=== PATIENT | female | born 1970 | race Hispanic/Latino ===

== ENCOUNTER 2017-10-02 04:07 | Emergency (ER) | payer BC ==
[2017-10-02] MEDS ORDERED: TRAMADOL HCL 50 MG TABLET ONE (05:50)
== END 2017-10-02 07:02 | disposition home or self-care (01) ==
LOC: EDH 04:07
DX: M79.645 Pain in left finger(s) (principal); M25.532 Pain in left wrist; I10 Essential (primary) hypertension; Z98.51 Tubal ligation status
CPT/HCPCS: 29125; 29130; 36415; 73130; 84550

== ENCOUNTER 2017-11-04 17:03 | Emergency (ER) | payer BC ==
[2017-11-04 17:31] LABS: BASOPHILS % (AUTO) 0.5 % (0.0-5.0); EOSINOPHILS % (AUTO) 0.7 % (0.0-8.0); HEMATOCRIT 41.3 % (36-48); LYMPHOCYTES % (AUTO) 14.9 % (21.0-51.0); MEAN CORPUSCULAR HEMOGLOBIN 27.3 pg (27.0-33.0); MEAN CORPUSCULAR HGB CONC 32.9 g/dL (32.0-36.0); MEAN CORPUSCULAR VOLUME 83.1 fL (79-99); MONOCYTES % (AUTO) 5.8 % (3.0-13.0); NEUTROPHILS % (AUTO) 78.1 % (40.0-77.0); PLATELET COUNT (AUTO) 253 K/uL (130-400); RED BLOOD CELL COUNT(AUTO) 4.97 MIL/uL (4.00-5.50); RED CELL DISTRIBUTION WIDTH 15.1 % (11.0-15.5); WHITE BLOOD COUNT (AUTO) 14.4 K/uL (4.8-10.8)
[2017-11-04] MEDS ORDERED: SODIUM CHLORIDE 0.9% 1000ML 1,000 ML IV ONE (17:40)
[2017-11-04] MEDS ORDERED: ONDANSETRON HCL 4 MG/2 ML VIAL ONE (17:40)
[2017-11-04] MEDS ORDERED: KETOROLAC TROMETHAMINE 30MG/ML ONE (17:41)
[2017-11-04 17:45] LABS: CREATININE 0.8 mg/dL (0.5-1.5); POTASSIUM 3.7 mmol/L (3.5-5.1)
[2017-11-04 17:49] LABS: ALBUMIN 3.8 g/dL (3.5-5.0); BILIRUBIN,TOTAL 0.9 mg/dL (0.2-1.0); TOTAL PROTEIN, SERUM 7.9 g/dL (6.0-8.3)
[2017-11-04 17:51] LABS: APPEARANCE,URINE CLOUDY (CLEAR); BILIRUBIN,URINE NEGATIVE (NEGATIVE); COLOR,URINE YELLOW (YELLOW); GLUCOSE, URINE (UA) NEGATIVE (NEGATIVE); KETONES,URINE 5 mg/dL (NEGATIVE); LEUKOCYTE ESTERASE ,URINE LARGE (NEGATIVE); NITRATE,URINE NEGATIVE (NEGATIVE); OCCULT BLOOD,URINE SMALL (NEGATIVE); PH,URINE 7.5 (5.0-8.0); PROTEIN,URINE 30 (NEGATIVE)
[2017-11-04 17:53] LABS: HCG,QUAL RESULT NEGATIVE (NEGATIVE)
[2017-11-04 18:06] LABS: BACTERIA,URINE Rare /HPF (None Seen); RBC,URINE 0-1 /HPF (0-1); WBC,URINE 51-100 /HPF (0-1)
[2017-11-04] MEDS ORDERED: IOPAMIDOL-370 75 ML VIAL IV ONE (18:23)
[2017-11-04] MEDS ORDERED: CEFTRIAXONE SODIUM 1 GM ONE (19:33)
== END 2017-11-04 20:00 | disposition home or self-care (01) ==
LOC: EDH 17:03
DX: N10 Acute pyelonephritis (principal); I10 Essential (primary) hypertension
CPT/HCPCS: 36415; 74177; 80053; 81001; 81025; 85025; 96361; 96374; 96375; 99285; J0696; J1885; J2405; J7030; Q9967

== ENCOUNTER 2019-01-12 20:42 | Emergency (ER) | payer OTHER, SELFPAY ==
[2019-01-12 21:20] LABS: APPEARANCE,URINE CLEAR (CLEAR); BILIRUBIN,URINE NEGATIVE (NEGATIVE); COLOR,URINE YELLOW (YELLOW); GLUCOSE, URINE (UA) NEGATIVE (NEGATIVE); KETONES,URINE NEGATIVE (NEGATIVE); LEUKOCYTE ESTERASE ,URINE LARGE (NEGATIVE); NITRATE,URINE NEGATIVE (NEGATIVE); OCCULT BLOOD,URINE TRACE-INTACT (NEGATIVE); PROTEIN,URINE NEGATIVE (NEGATIVE)
[2019-01-12 21:30] LABS: BASOPHILS % (AUTO) 0.7 % (0.0-5.0); EOSINOPHILS % (AUTO) 3.4 % (0.0-8.0); HEMATOCRIT 42.4 % (36-48); LYMPHOCYTES % (AUTO) 37.4 % (21.0-51.0); MEAN CORPUSCULAR HEMOGLOBIN 28.3 pg (27.0-33.0); MEAN CORPUSCULAR HGB CONC 33.3 g/dL (32.0-36.0); MEAN CORPUSCULAR VOLUME 85.1 fL (79-99); MONOCYTES % (AUTO) 13.3 % (3.0-13.0); NEUTROPHILS % (AUTO) 45.2 % (40.0-77.0); NUCLEATED RED BLOOD CELLS 0.1 % (0.0-0.19); PLATELET COUNT (AUTO) 198 K/uL (130-400); RED BLOOD CELL COUNT(AUTO) 4.98 MIL/uL (4.00-5.50); RED CELL DISTRIBUTION WIDTH 14.4 % (11.0-15.5); WHITE BLOOD COUNT (AUTO) 5.6 K/uL (4.8-10.8)
[2019-01-12 21:41] LABS: BACTERIA,URINE Few /HPF (None Seen)
[2019-01-12 21:42] LABS: CREATININE 0.8 mg/dL (0.5-1.5); POTASSIUM 3.6 mmol/L (3.5-5.1)
[2019-01-12 21:43] LABS: SQUAMOUS EPITHELIAL CELL,UR Few /HPF (0-2); TRANSITIONAL EPI CELLS,URINE Rare /HPF (None Seen)
[2019-01-12] MEDS ORDERED: IPRATROPIUM/ALBUTEROL SULFATE 3 ML SOLUTION IH ONE (21:45)
[2019-01-12 22:06] LABS: RAPID GROUP A STREP POSITIVE (NEGATIVE)
[2019-01-12] MEDS ORDERED: CEFTRIAXONE SODIUM 1 GM ONE (22:11)
[2019-01-12] MEDS ORDERED: AZITHROMYCIN 250 MG TABLET PO ONE (22:12)
== END 2019-01-12 23:05 | disposition home or self-care (01) ==
LOC: EDH 20:42
DX: J02.0 Streptococcal pharyngitis (principal); N39.0 Urinary tract infection, site not specified; I10 Essential (primary) hypertension; M19.90 Unspecified osteoarthritis, unspecified site; Z98.51 Tubal ligation status
CPT/HCPCS: 36415; 71045; 80048; 81001; 85025; 87077; 87088; 87186; 87804 ×2; 87880; 94640; 96374; 99285; J0696

== ENCOUNTER 2022-06-11 18:53 | Emergency (ER) | payer OTHER ==
[~2022-06-11] VITALS: Ht 152.4 cm; Wt 136.1 kg
[2022-06-11 19:32] LABS: BASOPHILS % (AUTO) 0.7 % (0.0-5.0); EOSINOPHILS % (AUTO) 1.9 % (0.0-8.0); HEMATOCRIT 39.9 % (36-48); LYMPHOCYTES % (AUTO) 25.5 % (21.0-51.0); MEAN CORPUSCULAR HEMOGLOBIN 27.8 pg (27.0-33.0); MEAN CORPUSCULAR HGB CONC 32.6 g/dL (32.0-36.0); MEAN CORPUSCULAR VOLUME 85.4 fL (79-99); MONOCYTES % (AUTO) 7.4 % (3.0-13.0); NEUTROPHILS % (AUTO) 64.2 % (40.0-77.0); PLATELET COUNT (AUTO) 238 K/uL (130-400); RED BLOOD CELL COUNT(AUTO) 4.67 MIL/uL (4.00-5.50); WHITE BLOOD COUNT (AUTO) 10.2 K/uL (4.8-10.8)
[2022-06-11 19:43] LABS: CREATININE 0.8 mg/dL (0.5-1.5)
[2022-06-11 19:44] LABS: INR 0.93 (0.85-1.15); PROTHROMBIN TIME 10.1 SEC (9.6-11.6)
[2022-06-11 19:45] LABS: PARTIAL THROMBOPLASTIN TIME 26.9 SEC (26.3-35.5)
[2022-06-11 19:48] LABS: ALBUMIN 3.5 g/dL (3.5-5.0); TOTAL PROTEIN, SERUM 6.9 g/dL (6.0-8.3)
[2022-06-11 19:58] LABS: APPEARANCE,URINE CLOUDY (CLEAR); BILIRUBIN,URINE NEGATIVE (NEGATIVE); COLOR,URINE LIGHT-ORANGE (YELLOW); GLUCOSE, URINE (UA) NEGATIVE (NEGATIVE); KETONES,URINE NEGATIVE (NEGATIVE); LEUKOCYTE ESTERASE ,URINE 500 Leu/uL (NEGATIVE); NITRATE,URINE NEGATIVE (NEGATIVE); OCCULT BLOOD,URINE LARGE (NEGATIVE); PROTEIN,URINE 10 mg/dL (NEGATIVE); UROBILINOGEN,URINE 0.2 mg/dL (0.2-1.0)
[2022-06-11 19:59] LABS: HCG,QUALITATIVE URINE NEGATIVE (NEGATIVE)
[2022-06-11 20:03] LABS: RBC,URINE TNTC /HPF (0-1); SQUAMOUS EPITHELIAL CELL,UR RARE /HPF (0-2); WBC,URINE 26-50 /HPF (0-1)
[2022-06-11] MEDS ORDERED: CEFTRIAXONE 1G VIAL ONE (20:10)
[2022-06-11] MEDS ORDERED: PHENAZOPYRIDINE HCL 200 MG TABLET ONE (20:11)
[2022-06-11] MEDS ORDERED: PHENAZOPYRIDINE HCL 200 MG TABLET PO ONE (20:30)
[2022-06-11] MEDS ORDERED: CEFTRIAXONE 1G VIAL IM ONE (20:30)
[2022-06-11 20:45] VITALS: BP 159/93
[2022-06-11] MEDS ORDERED: PHEN-847 PO (20:47)
[2022-06-11] MEDS ORDERED: CEPH500B PO (20:47)
== END 2022-06-11 20:55 | disposition home or self-care (01) ==
LOC: EDH 18:53
DX: N39.0 Urinary tract infection, site not specified (principal); I10 Essential (primary) hypertension; N93.8 Other specified abnormal uterine and vaginal bleeding; E66.01 Morbid (severe) obesity due to excess calories; Z85.42 Personal history of malignant neoplasm of other parts of uterus; Z68.43 Body mass index [BMI] 50.0-59.9, adult
CPT/HCPCS: 99284; 76856; 84484; 80053; 85025; 85610; 85730; 87088; 81001; 81025; 36415; 96372; J0696

== ENCOUNTER 2022-12-07 11:45 | Inpatient (IN) | payer BC ==
[~2022-12-07] VITALS: Ht 154.9 cm; Wt 136.6 kg
[~2022-12-07 11:45] MED LIST: CITA20TA17 PO; HYDR-4060 PO; LOSA1TAB42 PO; MEDR10TA11 PO; OMEP40CA21 PO
[2022-12-07 12:47] LABS: BASOPHILS % (AUTO) 0.4 % (0.0-5.0); EOSINOPHILS % (AUTO) 1.3 % (0.0-8.0); HEMATOCRIT 40.3 % (36-48); LYMPHOCYTES % (AUTO) 20.4 % (21.0-51.0); MEAN CORPUSCULAR HEMOGLOBIN 28.3 pg (27.0-33.0); MEAN CORPUSCULAR HGB CONC 32.5 g/dL (32.0-36.0); MONOCYTES % (AUTO) 5.9 % (3.0-13.0); NEUTROPHILS % (AUTO) 71.6 % (40.0-77.0); PLATELET COUNT (AUTO) 217 K/uL (130-400); RED BLOOD CELL COUNT(AUTO) 4.63 MIL/uL (4.00-5.50); RED CELL DISTRIBUTION WIDTH 14.3 % (11.0-15.5)
[2022-12-07] MEDS ORDERED: ONDANSETRON 4MG INJ IVP ONE (13:00)
[2022-12-07] MEDS ORDERED: KETOROLAC 15MG/ML VIAL (15MG/ML) IV ONE (13:00)
[2022-12-07] MEDS ORDERED: FAMOTIDINE 20MG VIAL IV ONE ×2 (13:00→13:41)
[2022-12-07] MEDS ORDERED: MORPHINE 4 MG SYG IVP ONE (13:00)
[2022-12-07] MEDS ORDERED: 0.9%NACL 1000ML 1,000 ML IV ONE ×2 (13:00→13:40)
[2022-12-07 13:04] LABS: POTASSIUM 3.6 mmol/L (3.5-5.1)
[2022-12-07 13:13] LABS: ALBUMIN 3.5 g/dL (3.5-5.0); TOTAL PROTEIN, SERUM 6.8 g/dL (6.0-8.3)
[2022-12-07 13:14] LABS: APPEARANCE,URINE CLEAR (CLEAR); BILIRUBIN,URINE NEGATIVE (NEGATIVE); COLOR,URINE YELLOW (YELLOW); GLUCOSE, URINE (UA) NEGATIVE (NEGATIVE); KETONES,URINE NEGATIVE (NEGATIVE); LEUKOCYTE ESTERASE ,URINE 25 Leu/uL (NEGATIVE); NITRATE,URINE NEGATIVE (NEGATIVE); OCCULT BLOOD,URINE NEGATIVE (NEGATIVE); PROTEIN,URINE NEGATIVE (NEGATIVE); UROBILINOGEN,URINE 0.2 mg/dL (0.2-1.0)
[2022-12-07 13:35] LABS: BACTERIA,URINE RARE /HPF (None Seen); MUCUS,URINE RARE LPF (None Seen); SQUAMOUS EPITHELIAL CELL,UR FEW /HPF (0-2)
[2022-12-07] MEDS ORDERED: KETOROLAC 15MG/ML VIAL (15MG/ML) ONE (13:40)
[2022-12-07] MEDS ORDERED: MORPHINE 4 MG SYG ONE (13:41)
[2022-12-07] MEDS ORDERED: ONDANSETRON 4MG INJ ONE (13:41)
[2022-12-07] MEDS ORDERED: ONDANSETRON 4MG INJ IVP PRN (15:00)
[2022-12-07] MEDS ORDERED: POTASSIUM CHLORIDE 20MEQ/100ML 100 ML IV PRN (15:00)
[2022-12-07] MEDS ORDERED: LIDOCAINE HCL-MPF 1% 2ML VIAL IV PRN (15:00)
[2022-12-07] MEDS ORDERED: KETOROLAC 15MG/ML VIAL (15MG/ML) IV PRN (15:00)
[2022-12-07] MEDS ORDERED: LABETALOL 20MG VIAL IV PRN (15:00)
[2022-12-07] MEDS ORDERED: ACETAMINOPHEN 325 MG TAB PO PRN (15:00)
[2022-12-07] MEDS ORDERED: MAGNESIUM 2GM PREMIX 50ML 50 ML IV PRN (15:00)
[2022-12-07] MEDS: 0.9%NACL 1000ML 1,000 ML IV SCH ×2 (16:33→20:07)
[2022-12-07] MEDS: ZOSYN 3.375GM +NS 50ML IVPB SCH ×2 (16:33→23:28)
[2022-12-07] MEDS ORDERED: DICL75TA5 PO (16:38)
[2022-12-07] MEDS: FAMOTIDINE 20MG VIAL IV SCH (20:06)
[2022-12-07 22:47] VITALS: BP 157/97
[2022-12-08 04:21] VITALS: BP 130/73
[2022-12-08 06:01] LABS: BASOPHILS % (AUTO) 0.6 % (0.0-5.0); EOSINOPHILS % (AUTO) 1.8 % (0.0-8.0); HEMATOCRIT 36.2 % (36-48); LYMPHOCYTES % (AUTO) 26.4 % (21.0-51.0); MEAN CORPUSCULAR HEMOGLOBIN 28.2 pg (27.0-33.0); MEAN CORPUSCULAR HGB CONC 31.8 g/dL (32.0-36.0); MEAN CORPUSCULAR VOLUME 88.7 fL (79-99); MONOCYTES % (AUTO) 6.8 % (3.0-13.0); NEUTROPHILS % (AUTO) 64.3 % (40.0-77.0); PLATELET COUNT (AUTO) 191 K/uL (130-400); RED BLOOD CELL COUNT(AUTO) 4.08 MIL/uL (4.00-5.50); RED CELL DISTRIBUTION WIDTH 14.3 % (11.0-15.5)
[2022-12-08 06:20] LABS: ALBUMIN 2.9 g/dL (3.5-5.0); CREATININE 1.1 mg/dL (0.5-1.5); CRP QUANTITATIVE 11.2 mg/L (0.00-9.0); MAGNESIUM 1.8 mg/dL (1.80-2.40); POTASSIUM 3.5 mmol/L (3.5-5.1); TOTAL PROTEIN, SERUM 5.7 g/dL (6.0-8.3)
[2022-12-08 08:00] VITALS: BP 130/78
[2022-12-08] MEDS: ZOSYN 3.375GM +NS 50ML IVPB SCH ×3 (08:04→23:06)
[2022-12-08] MEDS: 0.9%NACL 1000ML 1,000 ML IV SCH ×2 (08:04→20:54)
[2022-12-08] MEDS: FAMOTIDINE 20MG VIAL IV SCH (09:00)
[2022-12-08] MEDS: ENOXAPARIN SODIUM 40 MG/0.4 ML SYRINGE SQ SCH (09:00)
[2022-12-08 12:00] VITALS: BP 170/81
[2022-12-08 16:00] VITALS: BP 131/73
[2022-12-08] MEDS ORDERED: KCL 20 MEQ ERTAB PO PRN (18:00)
[2022-12-08] MEDS ORDERED: POTASSIUM CHLORIDE 20MEQ/100ML 100 ML IV PRN (18:00)
[2022-12-08] MEDS ORDERED: POTASSIUM CHLORIDE 10% ELIXIR 20 MEQ/15 ML UDCUP PO PRN (18:00)
[2022-12-08] MEDS ORDERED: LIDOCAINE HCL-MPF 1% 2ML VIAL IV PRN (18:00)
[2022-12-08 20:00] VITALS: BP 138/72
[2022-12-09] VITALS: BP 147/72
[2022-12-09 04:00] VITALS: BP 141/68
[2022-12-09 06:02] LABS: BASOPHILS % (AUTO) 0.9 % (0.0-5.0); EOSINOPHILS % (AUTO) 3.2 % (0.0-8.0); HEMATOCRIT 35.6 % (36-48); LYMPHOCYTES % (AUTO) 29.7 % (21.0-51.0); MEAN CORPUSCULAR HEMOGLOBIN 28.5 pg (27.0-33.0); MEAN CORPUSCULAR HGB CONC 32.9 g/dL (32.0-36.0); MEAN CORPUSCULAR VOLUME 86.8 fL (79-99); MONOCYTES % (AUTO) 8.2 % (3.0-13.0); NEUTROPHILS % (AUTO) 57.7 % (40.0-77.0); PLATELET COUNT (AUTO) 195 K/uL (130-400); RED CELL DISTRIBUTION WIDTH 13.9 % (11.0-15.5); WHITE BLOOD COUNT (AUTO) 6.6 K/uL (4.8-10.8)
[2022-12-09 06:27] LABS: ALBUMIN 2.9 g/dL (3.5-5.0); MAGNESIUM 1.7 mg/dL (1.80-2.40); TOTAL PROTEIN, SERUM 5.7 g/dL (6.0-8.3)
[2022-12-09] MEDS: ZOSYN 3.375GM +NS 50ML IVPB SCH ×3 (06:39→21:42)
[2022-12-09 08:00] VITALS: BP 151/102
[2022-12-09] MEDS: SIMETHICONE 80 MG TAB.CHEW PO SCH ×4 (09:07→21:00)
[2022-12-09] MEDS: ENOXAPARIN SODIUM 40 MG/0.4 ML SYRINGE SQ SCH (09:08)
[2022-12-09] MEDS: 0.9%NACL 1000ML 1,000 ML IV SCH ×2 (09:12→21:14)
[2022-12-09] MEDS: FAMOTIDINE 20MG VIAL IV SCH (09:55)
[2022-12-09 12:00] VITALS: BP 170/89
[2022-12-09 16:00] VITALS: BP 166/82
[2022-12-09 20:00] VITALS: BP 161/86
[2022-12-10] VITALS (20 sets, daily range): BP systolic 119–166; BP diastolic 56–96
[2022-12-10] MEDS: ZOSYN 3.375GM +NS 50ML IVPB SCH ×2 (05:01→11:27)
[2022-12-10 05:09] LABS: BASOPHILS % (AUTO) 0.8 % (0.0-5.0); EOSINOPHILS % (AUTO) 3.5 % (0.0-8.0); HEMATOCRIT 35.3 % (36-48); LYMPHOCYTES % (AUTO) 32.2 % (21.0-51.0); MEAN CORPUSCULAR HEMOGLOBIN 28.8 pg (27.0-33.0); MEAN CORPUSCULAR HGB CONC 33.1 g/dL (32.0-36.0); MEAN CORPUSCULAR VOLUME 86.9 fL (79-99); MONOCYTES % (AUTO) 7.6 % (3.0-13.0); NEUTROPHILS % (AUTO) 55.8 % (40.0-77.0); PLATELET COUNT (AUTO) 192 K/uL (130-400); RED BLOOD CELL COUNT(AUTO) 4.06 MIL/uL (4.00-5.50); RED CELL DISTRIBUTION WIDTH 13.8 % (11.0-15.5); WHITE BLOOD COUNT (AUTO) 7.4 K/uL (4.8-10.8)
[2022-12-10 05:33] LABS: ALBUMIN 3.1 g/dL (3.5-5.0); CREATININE 1.1 mg/dL (0.5-1.5); MAGNESIUM 1.9 mg/dL (1.80-2.40); POTASSIUM 3.7 mmol/L (3.5-5.1); TOTAL PROTEIN, SERUM 6.1 g/dL (6.0-8.3)
[2022-12-10] MEDS ORDERED: BUPIVACAINE/PF 0.5% 30ML VIAL ONE (07:02)
[2022-12-10] MEDS ORDERED: MIDAZOLAM HCL 1 MG/ML 2ML VIAL ONE (07:24)
[2022-12-10] MEDS ORDERED: LIDOCAINE HCL-MPF 2% 10ML AMP IJ ONE (07:24)
[2022-12-10] MEDS ORDERED: LACTATED RINGERS 1000ML 1,000 ML IV ONE (07:24)
[2022-12-10] MEDS ORDERED: PROPOFOL 10 MG/ML 20ML VIAL IV ONE (07:24)
[2022-12-10] MEDS ORDERED: ROCURONIUM 10MG/1ML SYR 10 MG/ML ML ONE (07:25)
[2022-12-10] MEDS ORDERED: FENTANYL CITRATE PF 50 MCG/1 ML 2ML VIAL ONE ×2 (07:25→08:35)
[2022-12-10] MEDS ORDERED: ONDANSETRON 4MG INJ ONE (07:28)
[2022-12-10] MEDS ORDERED: DEXAMETHASONE SOD PHOSPHATE 4 MG/ML 1ML VIAL ONE (07:28)
[2022-12-10] MEDS ORDERED: GLYCOPYRROLATE 1 MG/5 ML SYRINGE ONE (08:19)
[2022-12-10] MEDS ORDERED: NEOSTIGMINE 5MG/5ML SYR IV ONE (08:31)
[2022-12-10] MEDS: SIMETHICONE 80 MG TAB.CHEW PO SCH ×4 (09:00→21:26)
[2022-12-10] MEDS: ENOXAPARIN SODIUM 40 MG/0.4 ML SYRINGE SQ SCH (09:00)
[2022-12-10] MEDS ORDERED: MEPERIDINE-PF 25 MG/ML SYG ONE ×2 (09:08→09:24)
[2022-12-10] MEDS: FAMOTIDINE 20MG VIAL IV SCH (10:06)
[2022-12-10] MEDS: ACETAMINOPHEN WITH CODEINE 1 TAB TAB PO PRN ×2 (10:11→16:49)
[2022-12-10] MEDS ORDERED: KETOROLAC 15MG/ML VIAL (15MG/ML) IV PRN (11:30)
[2022-12-10] MEDS ORDERED: KETOROLAC 15MG/ML VIAL (15MG/ML) ONE (11:34)
[2022-12-10] MEDS: 0.9%NACL 1000ML 1,000 ML IV SCH ×2 (11:46→21:26)
[2022-12-11] VITALS: BP 120/63
[2022-12-11] MEDS: ZOSYN 3.375GM +NS 50ML IVPB SCH ×2 (00:21→07:00)
[2022-12-11 04:00] VITALS: BP 133/72
[2022-12-11 05:43] LABS: BASOPHILS % (AUTO) 0.1 % (0.0-5.0); HEMATOCRIT 36.8 % (36-48); LYMPHOCYTES % (AUTO) 13.4 % (21.0-51.0); MEAN CORPUSCULAR HEMOGLOBIN 28.5 pg (27.0-33.0); MEAN CORPUSCULAR HGB CONC 33.2 g/dL (32.0-36.0); MONOCYTES % (AUTO) 5.5 % (3.0-13.0); NEUTROPHILS % (AUTO) 80.5 % (40.0-77.0); PLATELET COUNT (AUTO) 206 K/uL (130-400); RED BLOOD CELL COUNT(AUTO) 4.28 MIL/uL (4.00-5.50); RED CELL DISTRIBUTION WIDTH 13.8 % (11.0-15.5); WHITE BLOOD COUNT (AUTO) 10.3 K/uL (4.8-10.8)
[2022-12-11 06:13] LABS: ALBUMIN 3.2 g/dL (3.5-5.0); CREATININE 0.9 mg/dL (0.5-1.5); POTASSIUM 3.9 mmol/L (3.5-5.1); TOTAL PROTEIN, SERUM 6.3 g/dL (6.0-8.3)
[2022-12-11 08:00] VITALS: BP 138/71
[2022-12-11] MEDS: ENOXAPARIN SODIUM 40 MG/0.4 ML SYRINGE SQ SCH (08:49)
[2022-12-11] MEDS: FAMOTIDINE 20MG VIAL IV SCH (08:49)
[2022-12-11] MEDS: SIMETHICONE 80 MG TAB.CHEW PO SCH ×2 (08:49→12:20)
[2022-12-11 12:00] VITALS: BP_SYST 142; BP_SYST 148; BP_DIAS 67; BP_DIAS 79
== END 2022-12-11 16:10 | disposition home or self-care (01) | DRG 417 ==
LOC: EDH 11:45 → EDHIP 14:48 → 3AH 23:17
PROVIDERS: ADMIT Internal Medicine; ATTEND Internal Medicine
PROC: 0FT44ZZ Resection of Gallbladder, Percutaneous Endoscopic Approach (ICD-10-PCS; principal; 2022-12-10 07:49)
DX: K80.10 Calculus of gallbladder with chronic cholecystitis without obstruction (principal); K85.10 Biliary acute pancreatitis without necrosis or infection; Z68.43 Body mass index [BMI] 50.0-59.9, adult; Z20.822 Contact with and (suspected) exposure to COVID-19; E66.01 Morbid (severe) obesity due to excess calories; I10 Essential (primary) hypertension; K21.9 Gastro-esophageal reflux disease without esophagitis; K76.0 Fatty (change of) liver, not elsewhere classified; K82.8 Other specified diseases of gallbladder; Z79.899 Other long term (current) drug therapy; Z90.710 Acquired absence of both cervix and uterus
CPT/HCPCS: 36415; 74183; 76705; 80053; 81001; 83690; 83735; 85025; 86140; 87635; G0378; J1100; J1650; J1885; J2175; J2250; J2270; J2405; J2543; J2704; J2710; J3010; J3475; J3490; J7030; J7120

== ENCOUNTER 2023-09-27 19:07 | Emergency (ER) | payer BC ==
[~2023-09-27] VITALS: Ht 152.4 cm; Wt 143.3 kg
[~2023-09-27 19:07] MED LIST changes: +CYCL-309 PO; +DICL75TA5 PO; +LIDOP TP; +MELO7.5T12 PO
[2023-09-27 19:39] VITALS: BP 170/97; PULSE 66; RESP 18
== END 2023-09-27 23:54 | disposition left against medical advice (07) ==
LOC: EDH 19:07
DX: R10.9 Unspecified abdominal pain (principal); Z53.21 Procedure and treatment not carried out due to patient leaving prior to being seen by health care provider

== ENCOUNTER → 2024-01-25 | Outpatient (CLI) | payer OTHER | END | disposition home or self-care (01) | LOC: RAH 09:32 | PROVIDERS: ATTEND Family Medicine | DX: Z12.31 Encounter for screening mammogram for malignant neoplasm of breast (principal) | CPT/HCPCS: 77067 ==

== ENCOUNTER → 2025-03-07 | Outpatient (CLI) | payer OTHER ==
--- NOTE | 2025-03-08 08:54 | HMCIMG ---
Exam Type: MAMMO SCREENING BILATERAL Clinical Information: ROUTINE SCREENING Comparison: January 25, 2024 Technique: Mammogram with CAD was performed with CC and MLO projections. CAD shows no worrisome regions. FINDINGS: The breasts are heterogeneously dense, which may obscure small masses. No dominant mass or suspicious microcalcification identified. There is no nipple retraction or skin thickening. Benign-appearing calcifications are seen. CAD shows no worrisome regions. IMPRESSION: 1. No mammographic signs of malignancy. 2. Routine follow-up recommended. CATEGORY 2: BENIGN FINDINGS Note: A negative x-ray should not delay biopsy if a dominant or clinically suspicious mass is present, since 8-10% of cancers are not identified by mammography. Dense breasts may obscure an underlying neoplasm.
== END | disposition home or self-care (01) ==
LOC: RAH 12:13
PROVIDERS: ATTEND Family Medicine
DX: Z12.31 Encounter for screening mammogram for malignant neoplasm of breast (principal); R92.333 Mammographic heterogeneous density, bilateral breasts
CPT/HCPCS: 77067